=== PATIENT | female | born 1990 | race Caucasian/White ===

== ENCOUNTER 2017-01-14 17:25 | Emergency (ER) | payer SELFPAY ==
[~2017-01-14] VITALS: Ht 165.1 cm; Wt 63.5 kg
[2017-01-14 17:46] VITALS: BP 122/82
[2017-01-14] MEDS ORDERED: CARBAMIDE PEROXIDE 6.5% OTIC(EAR) SOLN 15ML EACH EAR ONE (19:15)
== END 2017-01-14 19:34 | disposition home or self-care (01) ==
LOC: ER 17:28
DX: H61.21 Impacted cerumen, right ear (principal)

== ENCOUNTER 2017-04-14 23:42 | Emergency (ER) | payer SELFPAY ==
[~2017-04-14] VITALS: Ht 165.1 cm; Wt 68.0 kg
[2017-04-14 23:58] VITALS: BP 133/90
[2017-04-15] MEDS ORDERED: cefTRIAXone SODIUM 250 MG VL IM ONE (03:00)
[2017-04-15] MEDS ORDERED: AZITHROMYCIN 250 MG TAB PO ONE (03:00)
== END 2017-04-15 02:49 | disposition home or self-care (01) ==
LOC: ER 23:42
DX: N89.8 Other specified noninflammatory disorders of vagina (principal); Z20.2 Contact with and (suspected) exposure to infections with a predominantly sexual mode of transmission
CPT/HCPCS: 96372; 99283; J0696

== ENCOUNTER → 2019-12-27 | Emergency (ER) | payer SELFPAY | END | disposition left against medical advice (07) | LOC: ER 12:06 | DX: R52 Pain, unspecified (principal); Z53.21 Procedure and treatment not carried out due to patient leaving prior to being seen by health care provider ==

== ENCOUNTER 2021-10-08 13:10 | Emergency (ER) | payer MEDICAID ==
[~2021-10-08] VITALS: Ht 165.1 cm; Wt 68.0 kg
[2021-10-08 13:19] VITALS: BP 125/83
[2021-10-08 14:23] LABS: Basophils # (auto) 0 10 ^3/uL (0-0.2); Basophils % (auto) 0.2 % (0.0-2.0); Eosinophils # (auto) 0.1 10 ^3/uL (0-0.8); Eosinophils % (auto) 0.4 % (0.0-7.0); Hematocrit 37.4 % (36.0-46.0); Hemoglobin 12.5 g/dL (12.2-16.2); Lymphocytes # (auto) 1.1 10 ^3/uL (0.4-5.4); Lymphocytes % (auto) 9.1 % (10.0-50.0); Mean Corpuscular Hemoglobin 29.8 pg (28.0-32.0); Mean Corpuscular Hgb Conc. 33.5 g/dL (32.0-36.0); Mean Corpuscular Volume 88.9 fL (80.0-100.0); Monocytes # (auto) 0.6 10 ^3/uL (0-1.3); Monocytes % (auto) 5.4 % (0.0-12.0); Neutrophils # (auto) 10.2 10 ^3/uL (1.6-8.6); Neutrophils % (auto) 84.9 % (37.0-80.0); Red Cell Distribution Width 14.3 % (11.8-14.3)
[2021-10-08 14:30] LABS: Potassium 3.8 mmol/L (3.5-5.1)
[2021-10-08 14:37] LABS: Albumin 3.5 g/dL (3.4-5.0); BUN/Creatinine Ratio 11.1; Bilirubin, Total 0.4 mg/dL (0.2-1.0); Calcium 8.9 mg/dL (8.5-10.1); Total Protein 6.8 g/dL (6.4-8.2)
== END 2021-10-08 22:48 | disposition left against medical advice (07) ==
LOC: ER 13:10
DX: L02.214 Cutaneous abscess of groin (principal); Z53.21 Procedure and treatment not carried out due to patient leaving prior to being seen by health care provider
CPT/HCPCS: 36415; 80053; 84702; 85025; 93926